=== PATIENT | male | born 1995 | race Caucasian/White ===

== ENCOUNTER 2017-04-06 11:06 | Day surgery (SDC) | payer BC, OTHER ==
[2017-04-06] VITALS (12 sets, daily range): BP systolic 102–117; BP diastolic 57–94
[~2017-04-06] VITALS: Ht 190.5 cm; Wt 72.6 kg
--- OUTSIDE RECORDS SUMMARY | 2017-04-06 11:08 | XMS REPORT | Encounter Summary ---
Author Author [facility] Organization [facility] Address Unknown Phone Unavailable Care Team Providers Care Fermentation Manager Name Role Phone PCP Unavailable Reason for Visit * Reason Comments HRM - Abnormal Results torsades 03/23/17 on ILR (Remote Device - Abnormal Rhythms) Encounter Details Date Type Department Care Team Description 04/02/2017 Telephone [facility] Cardiology Esha Aponte RN HRM - Abnormal Results [address] (Remote Device - Abnormal Justyn G600 Rhythms) (torsades 03/23/17 [place] [address] on ILR) [phone] Social History Tobacco Use Types Packs/Day Years Used Date Never Smoker Smokeless Tobacco: Never Used Alcohol Use Drinks/Week oz/Week Comments Yes 4 Cans of 2.4 beer Sex Assigned at Date Recorded Not on file as of this encounter Miscellaneous Notes * Addendum Note - Eneida Kim RN - 04/02/2017 9:58 AM [employer]IGH [employer]CHOOL [employer] MEDIA SPECIALIST Addended by: ENEIDA KIM on: 04/02/2017 09:58 AM Modules accepted: Orders * Telephone Encounter - nEeida Kim RN - 04/02/2017 9:57 AM [employer]CHO[employer] MEDIA SPECIALIST Followed up with WOODWORKING MACHINE OFFBEARER. Recommended for him to be evaluated today by Dr. Perez. Possible admission for tele monitoring until ICD can be placed. Agree with propranolol 10mg TID. Notified Dr. Perez's office of request. Agreeable to see at 1040 today. Notified Tena, she verbalized understanding and was agreeable with the plan. * Telephone Encounter - Eneida Kim, NENA - 04/02/2017 9:19 AM [employer]IGH [employer]CHO[employer] MEDIA SPECIALIST Followed up with patient's mom, Tena. She reports patient is currently sleeping due to the flu. Chester (p) [phone] She states he thinks he had some lightheadedness the evening of 03/23/17. He may have been drinking the evening before. At most recent OV with WOODWORKING MACHINE OFFBEARER: I have never been able to document a ventricular arrhythmia on Chester. I think it is okay for him to be off of pindolol for now. If we do start seeing any arrhythmias, then I would favor reinitiating propranolol instead as it does not have such as stimulating side effect. He will intermittently reconnect with his device and/or call us if he has any symptoms. Reviewed with RAD. Recommend 20mg TID, hydrate and avoid fevers. Followed up with patient's mom. Notified of recommendations. She is requesting lower dose of propranolol to start, until WOODWORKING MACHINE OFFBEARER reviews. 10mg TID sent in. Stressed importance of hydration. She states they have been trying to keep him hydrated. And to report to ED with any lightheadedness / syncope. She was agreeable with the plan. * Telephone Encounter - Esha Aponte RN - 04/02/2017 8:45 AM [employer]CHO[employer] MEDIA SPECIALIST Received urgent report of torsades event on LINQ from [facility] Fixed - Parking Tickets. Pt is gene positive for Long QT, no previously documented events hence LINQPlaced call to pt to discuss, number of chart is pt's mother Tena. Informed Tena of ventricular event noted on LINQ 03/23/17 at 2158. Tena states pt is doing fine , has not reported any symptoms to her. She states he is sick right now with the flu. She will review with pt if he had any symptoms at time of event. Will review with WOODWORKING MACHINE OFFBEARER and return call to pt's mom with plan. Tena states understanding and is agreeable to plan. No further questions or concerns at this time. WOODWORKING MACHINE OFFBEARER in case in EP lab, will review with RAD in clinic and f/u with pt's mom. in this encounter Plan of Treatment Not on fileas of this encounter Visit Diagnoses Not on filein this encounter
--- OUTSIDE RECORDS SUMMARY | 2017-04-06 11:08 | XMS REPORT | Clinical Summary ---
Author Author [facility] Organization [facility] Address Unknown Phone Unavailable Care Team Providers Care Form Setter Steel Forms Name Role Phone PCP Unavailable Source Comments Some departments are not documenting in the electronic medical record. If you do not see the information that you expected, contact Release of Information in the Health Information Management department at [phone] for further assistance in locating additional records.[facility] Allergies Active Allergy Reactions Severity Noted Date Comments Ceftazidime HIVES High 10/22/2015 Seasonal Allergies COUGH Low 10/22/2015 Current Medications Prescription Sig. Disp. Refills Start End Date Status Date LORATADINE (CLARITIN PO) Take by mouth daily. Active MONTELUKAST SODIUM Take by mouth daily. Active (SINGULAIR PO) pindolol (VISKIN) 5 mg Take 0.5 Tabs by mouth 60 Tab 6 11/06/19 Active tablet twice daily. 16 propranolol (INDERAL) 10 Take 1 tablet by mouth 90 tablet 3 04/02/19 Active mg tablet three times daily. 18 Active Problems Problem Noted Date Lightheadedness 10/25/2015 Last Assessment & Plan: He has done overall well since I last saw him. Chester denies any syncope. He does have some occasional lightheaded spells is really nonspecific about when they occur. I do not get the sense that all of them are associated with position changes. We talked about implantable loop recorder as his testing thus far has been negative. I reviewed the procedure including its risks and benefits. He has decided to proceed with ILR implantation today. 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 His pindolol is causing some anxiety and I suspect this is due to the sympathomimetic effect of the drug. Since coming off of it, Chester has noticed that his jumpiness and depression are gone. We talked about this at length. I have never been able to document [...] call us if he has any symptoms. He is happy with this plan. Bradycardia 10/25/2015 Encounters Date Type Specialty Care Team Description 04/02/2017 Telephone Cardiology Esha Aponte RN HRM - Abnormal Results (Remote Device - Abnormal Rhythms) (torsades 03/23/17 on ILR) 03/17/2017 [facility] Cardiology Suyapa Barrow MD Encounter 03/09/2017 Office Visit Cardiology Suyapa Barrow MD Device Check ( 6 month follow up / patient wants to talk to you about his meds); Bradycardia 03/09/2017 [facility] Cardiology Suyapa Barrow MD Encounter 02/10/2017 [facility] Cardiology Suyapa Barrow MD Encounter 01/07/2017 [facility] Cardiology Suyapa Barrow MD Encounter from Last 3 Months Family History Medical History Relation Name Comments Cancer Maternal Grandfather Heart Attack Maternal Grandfather Relation Name Status Comments Maternal Grandfather Maternal Grandmother Mother Alive Social History Tobacco Use Types Packs/Day Years Used Date Never Smoker Smokeless Tobacco: Never Used Alcohol Use Drinks/Week oz/Week Comments Yes 4 Cans of 2.4 beer Sex Assigned at Date Recorded Not on file Last Filed Vital Signs Vital Sign Reading Time Taken Blood Pressure 124/84 03/09/2017 2:58 PM MANAGER PLANT Pulse 49 03/09/2017 2:58 PM MANAGER PLANT Temperature - - Respiratory Rate - - Oxygen Saturation - - Inhaled Oxygen - - Concentration Weight 74.8 kg (165 lb) 03/09/2017 2:58 PM MANAGER PLANT Height 190.5 cm (6' 3") 03/09/2017 2:58 PM MANAGER PLANT Body Mass Index 20.62 03/09/2017 2:58 PM MANAGER PLANT Plan of Treatment Health Maintenance Due Date Last Done Comments PHYSICAL (COMPREHENSIVE) 2000 EXAM PERTUSSIS VACCINE 2004 TETANUS VACCINE 2010 INFLUENZA VACCINE 10/21/2016 Results * DEVICE EVALUATION - REMOTE ILR (03/17/2017 3:13 PM) Only the most recent of 3 results within the time period is included. Component Value Ref Range Device Implanted By Dr.Rhea Barrow Generator Model # [id number] Generator Serial # [id number] Generator Implnat Date 07/23/16 Remote Monitor Serial# [id number] LOBO/EOL Indicator per transmitter Generator Consumer Experience Consultant Medtronic Wireless Generator Yes Device Type ILR Device [place] [employer] Express Transmitter Compatible Known Diagnosed AFib No On Anticoagulation No EP Device Followed by Dr.Rhea Barrow Name ILR Symptom Duration 4 7.5 mins each ILR Tachy Rate 207 ILR Tachy Duration 16 ILR Pause Duration 3 ILR Kris Rate 30 ILR Kris Duration 4 ILR AT Events Since Last n/a Interrogation ILR AT Lifetime Events as n/a of EP Device Followed By MAC ILR AF Rate AF only ILR AF Duration only longest episode Generator Location Left ILR Current Monitoring 03/17/17-04/16/17 Period ILR Date of Last Daily 04/02/17 Connection ILR Battery Status OK ILR Symptom Events Since 0 Last Interrogation ILR Symptom Lifetime 0 Events as of ILR Tachy Events Since 0 Last Interrogation ILR Tachy Lifetime Events 1 as of ILR Pause Events Since 0 Last Interrogation ILR Pause Lifetime Events 0 as of ILR Kris Events Since 0 Last Interrogation ILR Kris Lifetime Events 0 as of ILR AF Events Since Last 0 Interrogation ILR AF Lifetime Events as 1 of ILR Percent Time in AT/AF 0 Events Since Last Interrogation ILR Percent Time in AT/AF 0 Lifetime of Events as of ILR Lifetime Events as of 04/02/17 Datetion Specimen Performing Laboratory OTHER OUTSIDE LAB Narrative [04/02/2017 8:45:32 AM - [facility]] Esha Aponte,EP nurse, notified of abnormal transmission for Torsades de pointes. Presenting EGM 04/02/17 @ 00:04 shows SB rates in the 40's. Event report received and reviewed Tachy Event. Tachy #2 03/23/17 @ 21:58- Rhythm strip shows SA rates between 70's-80's-Torsades de pointes Please see scanned data sheets for further review, will continue to monitor. Results routed to Dr. Barrow for signature and review. [03/17/2017 3:13:43 PM - [facility]] Presenting EGM: 03/14/17 @00:04: SR rates in the 80's Summary Report received and reviewed. No new events to review. Will continue to monitor. Routed to for review and cosign. * DEVICE EVALUATION - ILR (03/10/2017 8:56 AM) Component Value Ref Range Device Implanted By Dr.Rhea Barrow Generator Model # LNQ11 Generator Serial # [id number] Generator Implnat Date 07/23/16 Remote Monitor Serial# [id number] LOBO/EOL Indicator per transmitter Generator Consumer Experience Consultant Medtronic Wireless Generator Yes Device Type ILR Device [place] [employer] Express Transmitter Compatible Known Diagnosed AFib No On Anticoagulation No EP Device Followed by Dr.Rhea Barrow Name ILR Symptom Duration 4 7.5 mins each ILR Tachy Rate 207 ILR Tachy Duration 16 ILR Pause Duration 3 ILR Kris Rate 30 ILR Kris Duration 4 ILR AT Events Since Last n/a Interrogation ILR AT Lifetime Events as n/a of EP Device Followed By MAC ILR AF Rate AF only ILR AF Duration only longest episode Specimen Performing Laboratory OTHER OUTSIDE LAB Narrative [facility] 03/09/17 ILR check by MDT rep. One AMS event for < 0.1 %. No other information provided. See attached for more information. Remote in place. Same day OV with CARDIAC TECHNOLOGIST. Report to her. from Last 3 Months
--- OUTSIDE RECORDS SUMMARY | 2017-04-06 11:08 | XMS REPORT | Continuity of Care Document ---
Author Author [facility] Organization [facility] Address Unknown Phone Unavailable Care Team Providers Care Call Worker Name Role Phone [employer] Unavailable Unavailable Problems Medications Allergies, Adverse Reactions, Alerts Immunizations Results Vital Signs Encounters Location Location Details Encounter Type Encounter Number Reason For Visit Attending Provider ADM Date DC Date Status Source OUTPATIENT [id number] CASSANDRA PALMER 02/13/20162015 Active [facility] OUTPATIENT [id number] CASSANDRA PALMER 11/03/20162016 Active [facility] OUTPATIENT [id number] CASSANDRA PALMER 12/03/20162016 Active [facility] OUTPATIENT [id number] CASSANDRA PALMER 01/07/20172016 Active [facility] OUTPATIENT [id number] CASSANDRA PALMER 02/10/20172016 Active [facility] OUTPATIENT [id number] CASSANDRA PALMER 03/09/20172016 Active [facility] OUTPATIENT [id number] CASSANDRA PALMER 03/17/20172016 Active [facility] O Active [facility] Procedures Plan of Care Social History Assessment and Plan Family History Advance Directives Functional Status
--- OUTSIDE RECORDS SUMMARY | 2017-04-06 11:09 | XMS REPORT | Encounter Summary ---
Author Author [facility] Organization [facility] Address Unknown Phone Unavailable Care Team Providers Care Delivery Table Operator Name Role Phone PCP Unavailable Reason for Visit * Reason Comments Device Check 6 month follow up / patient wants to talk to you about his meds Bradycardia Encounter Details Date Type Department Care Team Description 03/09/2017 Office Visit [facility] Cardiology Suyapa Barrow MD Device Check (6 month [address] follow up / patient wants JOSELINE BEAN [phone] [place] [address] to talk to you about his [phone] [place] [address] meds); Bradycardia [id number] Social History Tobacco Use Types Packs/Day Years Used Date Never Smoker Smokeless Tobacco: Never Used Alcohol Use Drinks/Week oz/Week Comments Yes 4 Cans of 2.4 beer Sex Assigned at Date Recorded Not on file as of this encounter Last Filed Vital Signs Vital Sign Reading Time Taken Blood Pressure 124/84 03/09/2017 2:58 PM EMERGENCY ROOM DOCTOR Pulse 49 03/09/2017 2:58 PM EMERGENCY ROOM DOCTOR Temperature - - Respiratory Rate - - Oxygen Saturation - - Inhaled Oxygen - - Concentration Weight 74.8 kg (165 lb) 03/09/2017 2:58 PM EMERGENCY ROOM DOCTOR Height 190.5 cm (6' 3") 03/09/2017 2:58 PM EMERGENCY ROOM DOCTOR Body Mass Index 20.62 03/09/2017 2:58 PM EMERGENCY ROOM DOCTOR in this encounter Instructions * Patient Instructions - Suyapa Barrow MD - 03/09/2017 3:15 PM EMERGENCY ROOM DOCTOR Continue the same therapy for now. Call if you experience any changes or symptoms. Follow up in the office with Dr. Barrow in 12 months. in this encounter Progress Notes * Suyapa Barrow MD - 03/09/2017 3:15 PM EMERGENCY ROOM DOCTOR Formatting of this note may be different from the original. Date of Service: 03/09/2017 Chester Gomez is a 21 y.o. male. HPI Chester Gomez presents my office today in electrophysiology follow-up for history of genetically proven long QT and dizziness. As you know, he is a pleasant 21-year-old male with a past medical history of genetically proven long QT2 as well as sinus node dysfunction who was last seen in the office by me in July. At that time, he was doing well with any significant complaints. We made plans to see each other back in follow-up in 6 months. Chester is in my office today telling me that he has continued to do well. He is complaining of some sensations of anxiety and jumpiness on the pindolol. He also thinks that it is making him a little bit depressed. He came off the medicine a couple weeks ago and immediately noticed a difference. He wants to discuss whether he needs to be on the medication. Interrogation of the patient's implantable loop recorder shows one episode that was labeled atrial fibrillation on December 14 at 11 AM. Review of the electrograms associated with the event looks like sinus rhythm with frequent atrial ectopy rather than true atrial fibrillation. No ventricular arrhythmias were seen. Vitals: 03/09/17 1458 BP: 124/84 Pulse: 49 Weight: 74.8 kg (165 lb) Height: 1.905 m (6' 3") Body mass index is 20.62 kg/(m^2). 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 HENT: Negative. Eyes: Negative. Cardiovascular: Negative. Respiratory: Negative. Endocrine: Negative. Hematologic/Lymphatic: Negative. Skin: Negative. Musculoskeletal: Negative. Gastrointestinal: Negative. Genitourinary: Negative. Neurological: Negative. Psychiatric/Behavioral: Negative. Allergic/Immunologic: Negative. All other systems reviewed and are negative. Physical Exam GEN: well developed, well nourished, in no acute distress HEENT: unremarkable, no JVD CHEST: clear to auscultation bilaterally CV: Reg rhythm, nml rate; nml S1 & S2, no S3 or S4; no rub; no murmurs ABD: soft, nontender, non-distended, positive bowel sounds EXT: no clubbing, cyanosis, or edema, 2+ distal pulses NEURO: alert and oriented x3, no focal deficits Cardiovascular Studies 12 lead EKG: Sinus rhythm, ventricular rate 49 bpm, QT 490 msec Problems Addressed Today Encounter Diagnoses Name Primary? 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 He is happy with this plan. I have asked the patient to see me back in follow up in one year. Current Medications (including today's revisions) LORATADINE (CLARITIN PO) Take by mouth daily. MONTELUKAST SODIUM (SINGULAIR PO) Take by mouth daily. pindolol (VISKIN) 5 mg tablet Take 0.5 Tabs by mouth twice daily. 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 He is happy with this plan. in this encounter Plan of Treatment Name Priority Associated Diagnoses Order Schedule ECG 12-LEAD Routine Long QT syndrome Ordered: 03/09/2017 associated with mutation in KCNH2 gene Lightheadedness Bradycardia as of this encounter Results * DEVICE EVALUATION - ILR (03/10/2017 8:56 AM) Component Value Ref Range Device Implanted By Dr.Rhea Barrow Generator Model # LNQ11 Generator Serial # [id number] Generator Implnat Date 07/23/16 Remote Monitor Serial# [id number] LOBO/EOL Indicator per transmitter Generator Diamond Saw Operator Medtronic Wireless Generator Yes Device Type ILR Device [place] Carelink Express Transmitter Compatible Known Diagnosed AFib [...] episode Specimen Performing Laboratory OTHER OUTSIDE LAB [facility] 03/09/17 ILR check by MDT rep. One AMS event for < 0.1 %. No other information provided. See attached for more information. Remote in place. Same day OV with MILLER HELPER. Report to her. 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
--- OUTSIDE RECORDS SUMMARY | 2017-04-06 11:09 | XMS REPORT | Continuity of Care Document ---
Author Author [facility] Organization [facility] Address Unknown Phone Unavailable Allergies Active Description Code Type Severity Reaction Onset Reported/Identified Relationship to Patient Clinical Status Yes ceftazidime [id number] Drug Allergy Moderate HIVES 03/12/2015 Medications There is no data. Problems Date Dx Coded Attending Type Code Diagnosis Diagnosed By 01/23/2015 KARLA CAVAZOS, ALFREDITO Moreno Ot M54.16 01/24/2015 KARLA CAVAZOS, ALFREDITO Moreno Ot M54.16 02/01/2015 KARLA CAVAZOS, ALFREDITO Moreno Ot M54.16 02/28/2015 KARLA CAVAZOS, ALFREDITO Moreno Ot M54.16 03/05/2015 KARLA CAVAZOS, ALFREDITO Moreno Ot M54.16 03/12/2015 HUBERT WU MD, Ot M51.16 INTERVERTEBRAL DISC DISORDERS W RADICULO 04/13/2015 HUBERT WU MD, Ot M51.16 INTERVERTEBRAL DISC DISORDERS W RADICULO 05/07/2015 KARLA CAVAZOS, ALFREDITO Moreno Ot M54.16 06/19/2015 KARLA CAVAZOS, ALFREDITO Moreno Ot M54.16 06/27/2015 KARLA CAVAZOS, ALFREDITO Moreno Ot M54.16 07/25/2015 KARLA CAVAZOS, ALFREDITO Moreno Ot M54.16 RADICULOPATHY, LUMBAR REGION 12/18/2016 KARLA CAVAZOS, ALFREDITO Moreno Ot M54.16 RADICULOPATHY, LUMBAR REGION 04/03/2017 KARLA CAVAZOS, ALFREDITO Moreno Ot M54.16 RADICULOPATHY, LUMBAR REGION Procedures There is no data. Results There is no data. Encounters ACCT No. Visit Date/Time Discharge Status Pt. Type Provider Facility Loc./Unit Complaint [id number] 04/13/2015 10:22:00 04/13/2015 11:48:00 DIS Outpatient HUBERT WU MD [facility] CARD DISC DISORDER W/ RADICULOPATHY LUMBAR [id number] 03/12/2015 12:05:00 03/12/2015 13:51:00 DIS Outpatient JAZMIN CAVAZOS, HUBERT Sanchez [facility] CARD DDD WITH RADICULOPATHY [id number] 01/18/2015 15:42:00 01/18/2015 23:59:59 CLS Outpatient KARLA CAVAZOS, ALFREDITO Moreno [facility] RAD LUMBAR RADICULOPATHY [id number] 04/06/2017 13:30:00 PEN Preadmit KIERAN CAVAZOS, Lesia KAPADIA [facility] Z82.49,I45.81
--- OUTSIDE RECORDS SUMMARY | 2017-04-06 11:09 | XMS REPORT | Encounter Summary ---
Author Author [facility] Organization [facility] Address Unknown Phone Unavailable Care Team Providers Care Data Management Associate Name Role Phone PCP Unavailable Encounter Details Date Type Department Care Team Description 01/07/2017 [facility] Cardiology Suyapa Barrow MD Encounter Remote Device Check [address] [facility] [phone] [address] [place] [address] [phone] Social History Tobacco Use Types Packs/Day Years Used Date Never Smoker Smokeless Tobacco: Never Used Alcohol Use Drinks/Week oz/Week Comments Yes 4 Cans of 2.4 beer Sex Assigned at Date Recorded Not on file as of this encounter Medications at Time of Discharge Medication Sig. Disp. Refills Start Date End Date LORATADINE (CLARITIN PO) Take by mouth daily. MONTELUKAST SODIUM Take by mouth daily. (SINGULAIR PO) pindolol (VISKIN) 5 mg Take 0.5 Tabs by mouth 60 Tab 6 11/06/2015 tablet twice daily. as of this encounter Plan of Treatment Not on fileas of this encounter Results * DEVICE EVALUATION - REMOTE ILR (01/10/2017 9:19 AM) Component Value Ref Range Device Implanted By Dr.Rhea Barrow Generator Model # LNQ11 Generator Serial # [id number] Generator Implnat Date 07/23/16 Remote Monitor Serial# [id number] LOBO/EOL Indicator per transmitter Generator Teletypesetter Monitor Medtronic Wireless Generator Yes Device Type ILR Device [place] Carelink Express Transmitter Compatible Known Diagnosed AFib No On Anticoagulation No EP Device Followed by Dr.Rhea Barrow Name ILR Symptom Duration 4 7.5 mins each ILR Tachy Rate 207 ILR Tachy Duration 16 ILR Pause Duration 3 ILR Kris Rate 30 ILR Kris Duration 4 ILR AT Events Since Last n/a Interrogation ILR AT Lifetime Events as n/a of EP Device Followed By SANTOS ILR AF Rate AF only ILR AF Duration only longest episode Generator Location Left ILR Current Monitoring 01/07/2017 to 02/06/2017 Period ILR Date of Last Daily 02/04/17 Connection ILR Battery Status OK ILR Symptom Events Since 0 Last Interrogation ILR Symptom Lifetime 0 Events as of ILR Tachy Events Since 0 Last Interrogation ILR Tachy Lifetime Events 0 as of ILR Pause Events Since 0 Last Interrogation ILR Pause Lifetime Events 0 as of ILR Kris Events Since 0 Last Interrogation ILR Kris Lifetime Events 0 as of ILR AF Events Since Last 0 Interrogation ILR AF Lifetime Events as 1 of ILR Percent Time in AT/AF 0.0% Events Since Last Interrogation ILR Percent Time in AT/AF 0.0% Lifetime of Events as of ILR Presenting ECG Strip 01/05/2017 @ 00:04:50 shows SB in the 40's-50's ILR Lifetime Events as of 02/04/17 Datetion Specimen Performing Laboratory OTHER OUTSIDE LAB Narrative [02/04/2017 3:29:12 PM - AIMEE SALGADO] Presenting EGM: 02/04/17 @ 0246 SB 58 bpm Summary report received and reviewed. No new events to report, Will continue to monitor,Routed to Dr. Sosa for review/cosign. Dr. Pushpa JACOBSEN [01/10/2017 9:21:23 AM - DAVID ALVES] Presenting rhythm: 01/05/2017 @ 00:04:50 shows SB in the 40's-50's Reviewed Summary Report. No new events to report. Will continue to monitor pt. I will route to Dr. Sosa in the EP lab at today for review and co-sign. 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
--- OUTSIDE RECORDS SUMMARY | 2017-04-06 11:09 | XMS REPORT | Encounter Summary ---
Author Author [facility] Organization [facility] Address Unknown Phone Unavailable Care Team Providers Care Trailer Mechanic Name Role Phone PCP Unavailable Encounter Details Date Type Department Care Team Description 02/10/2017 [facility] Cardiology Suyapa Barrow MD Encounter Remote Device Check [address] [facility] [phone] [address] [place] [address] [phone] Social History Tobacco Use Types Packs/Day Years [...] Results * DEVICE EVALUATION - REMOTE ILR (02/11/2017 6:36 AM) Component Value Ref Range Device Implanted By Dr.Rhea Barrow Generator Model # LNQ11 Generator Serial # [id number] Generator Implnat Date 07/23/16 Remote Monitor Serial# [id number] LOBO/EOL Indicator per transmitter Generator Tractor Distributor Medtronic Wireless Generator Yes Device Type ILR Device [place] Carelink Express Transmitter Compatible Known Diagnosed AFib [...] episode Generator Location Left ILR Current Monitoring 02/10/2017 to 03/12/2017 Period ILR Date of Last Daily 02/11/2017 Connection ILR Battery Status OK ILR Symptom [...] Events as of ILR Presenting ECG Strip 02/11/2017 @ 00:04:50 shows SR in the 60's ILR Lifetime Events as of 02/11/2017 Datetion Specimen Performing Laboratory OTHER OUTSIDE LAB Narrative [02/11/2017 6:38:26 AM - DAVID ALVES] Presenting rhythm: 02/11/2017 @ 00:04:50 shows SR in the 60's Reviewed Summary Report. No new events to report. Will continue to monitor pt. I will route to Dr. Barrow for review and co-sign. 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
--- OUTSIDE RECORDS SUMMARY | 2017-04-06 11:09 | XMS REPORT | Encounter Summary ---
Author Author [facility] Organization [facility] Address Unknown Phone Unavailable Care Team Providers Care Automotive Assembler Name Role Phone PCP Unavailable Encounter Details Date Type Department Care Team Description 03/09/2017 [facility] Cardiology Suyapa Barrow MD Encounter [address] [place], [place] [phone] Social History Tobacco Use Types Packs/Day Years [...] Generator Model # LNQ11 Generator Serial # [id number] Generator Implnat Date 07/23/16 Remote Monitor Serial# [id number] LOBO/EOL Indicator per transmitter Generator Shipping Receiving Clerk Medtronic Wireless Generator Yes Device Type ILR Device [place] Carelink Express Transmitter Compatible Known Diagnosed AFib [...] episode Specimen Performing Laboratory OTHER OUTSIDE LAB [facility] 03/09/17 ILR check by MDT rep. One AMS event for < 0.1 %. No other information provided. See attached for more information. Remote in place. Same day OV with PRINTING PRESS OPERATOR APPRENTICE. Report to her. 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
--- OUTSIDE RECORDS SUMMARY | 2017-04-06 11:09 | XMS REPORT | Encounter Summary ---
Author Author [facility] Organization [facility] Address Unknown Phone Unavailable Care Team Providers Care Senior Gis Analyst Name Role Phone PCP Unavailable Encounter Details Date Type Department Care Team Description 03/17/2017 [facility] Cardiology Suyapa Barrow MD Encounter Remote Device Check [address] [facility] [phone] [address] [place] [address] [phone] Social History Tobacco Use Types Packs/Day Years [...] EVALUATION - REMOTE ILR (03/17/2017 3:13 PM) Component Value Ref Range Device Implanted By Dr.Rhea Barrow Generator Model # LNQ11 Generator Serial # [id number] Generator Implnat Date 07/23/16 Remote Monitor Serial# [id number] LOBO/EOL Indicator per transmitter Generator Dry End Operator Medtronic Wireless Generator Yes Device Type ILR Device [place] Carelink Express Transmitter Compatible Known Diagnosed AFib [...] monitor. Routed to for review and cosign. 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
[2017-04-06] MEDS ORDERED: HEParin (CATH LAB) 1,000 ML IV ONE (11:12)
[2017-04-06] MEDS ORDERED: LIDOCAINE 1% INJ 50 ML (XYLOCAINE) VIAL ONE ×2 (11:12→15:19)
[2017-04-06] MEDS ORDERED: NS IV 1000 ML 1,000 ML ONE (11:12)
[2017-04-06 11:43] LABS: HEMOGLOBIN 17.2 G/DL (13.3-17.7); MEAN PLATELET VOLUME 11.3 FL (7.4-10.4); RED BLOOD COUNT 5.41 10^6/uL (4.35-5.85); RED CELL DISTRIBUTION WIDTH 11.9 % (10.0-14.5); WHITE BLOOD COUNT 5.7 10^3/uL (4.3-11.0)
[2017-04-06] MEDS ORDERED: PROP10TA8 PO (11:51)
[2017-04-06 11:52] LABS: INR 1.1 (0.8-1.4); PROTHROMBIN TIME PATIENT 14.1 SEC (12.2-14.7)
[2017-04-06 12:05] LABS: ALANINE AMINOTRANSFERASE 29 U/L (0-55); ALBUMIN 4.9 GM/DL (3.2-4.5); ALKALINE PHOSPHATASE 48 U/L (40-136); BUN/CREATININE RATIO 12; CALCIUM 9.5 MG/DL (8.5-10.1); CARBON DIOXIDE 26 MMOL/L (21-32); CHLORIDE 103 MMOL/L (98-107); GFR ESTIMATED > 60; GLUCOSE 81 MG/DL (70-105); POTASSIUM 3.7 MMOL/L (3.6-5.0); SODIUM 141 MMOL/L (135-145); TOTAL PROTEIN 7.9 GM/DL (6.4-8.2)
[2017-04-06] MEDS ORDERED: BACITRACIN INJECTION 50,000 UNIT, SODIUM CHLORIDE 0.9% IRRIGATIO 500 ML IR ONE ×2 (12:30)
[2017-04-06] MEDS ORDERED: MIDAZOLAM 5 MG/5 ML (VERSED) VIAL ONE ×2 (12:35→13:33)
[2017-04-06] MEDS ORDERED: fentaNYL INJECTION 100 MCG/2 ML AMP ONE ×2 (12:35→13:34)
[2017-04-06] MEDS ORDERED: NS (IVPB) 250 ML ONE (12:37)
[2017-04-06] MEDS ORDERED: VANCOMYCIN 1000 MG/VIAL ONE (12:37)
[2017-04-06] MEDS ORDERED: proPOfol 200 MG/20 ML (DIPRIVAN) VIAL IV ONE (14:38)
--- NOTE | 2017-04-06 14:55 | Progress Note-Standard ---
Standard Progress Note Progress Notes/Assess & Plan Date Seen by Provider: Apr 06, 2017 Time Seen by Provider: 14:45 Progress/Assessment & Plan Anesthesia Note ([id number]) Called to slab miller operator for sedation (MAC) for defib function testing. Pt already received Versed 9 mg IV and Fentanyl 175 mcg IV prior to my arrival. VSS and pt not responding to verbal stimuli. Propofol 40 mg IV given for additional sedation prior to DFT. Pt tolerated the testing well. Will be available if needed. LESLYE MAYS DO Apr 06, 2017 14:55
[2017-04-06] MEDS ORDERED: NEO/POLY/BAC (NEOSPORIN) OINT 15 GM TUBE ONE (15:02)
--- NOTE | 2017-04-06 15:45 | Cardiac Procedure Note-CS/ASA ---
Pre-Procedure Note Pre-Op Procedure Note H&P Reviewed The H&P was reviewed, patient examined and no changes noted. Date H&P Reviewed: Apr 06, 2017 Time H&P Reviewed: 12:30 Conscious Sedation Pre-Proced Time Reviewed: 12:30 ASA Class: 3 Airway Mallampati Classification: (eek appropriate class) I. II. III, IV Lungs Heart ASA score ASA 1: a normal healthy patient ASA 2: a patient with a mild systemic disease (mid diabetes, controlled hypertension, obesity ASA 3: a patient with a severe systemic disease that limits activity (angina , COPD, prior Myocardial infarction) ASA 4: a patient with an incapacitating disease that is a constant threat to life (CHF, renal failure) ASA 5: a moribund patient not expected to survive 24 hrs. (ruptured aneurysm) ASA 6: a declared brain patient whose organs are being harvested. For emergent operations, add the letter E after the classification Grade 1 Sedation Plan: Analgesia, Amnesia, Plan communicated to team members, Discussed options with patient/fam, Discussed risks with patient/fam Note The patient is an appropriate candidate to undergo the planned procedure, sedation, and anesthesia. The patient immediately re-assessed prior to indication. Lesia ALCARAZ MD Apr 06, 2017 3:45 pm
--- NOTE | 2017-04-06 15:46 | Cardiology Post Procedure Note ---
Post-Procedure Note Physician (s)/Sand Carrier (s) Physician Lesia ALCARAZ MD Pre-Procedure Diagnosis Pre-Procedure Diagnosis: long QT syndrome, polymorphic VT Post-Procedure Note Procedure Start Date: Apr 06, 2017 Procedure Start Time: 13:00 Name of Procedure: 1. Single chamber ICD implantation. 2. Implantable loop recorder explantation. 3. Venogram 4. DFT testing Findings/Procedure Note Successful single-chamber Biotronik ICD implantation. Implantable loop recorder explantation. Anesthesia Type: Conscious Sedation Estimated blood loss (mL): 10 Contrast Amount: 5 Post-Procedure Diagnosis Post-operative diagnosis: Successful single-chamber ICD implantation. Implantable loop recorder explantation. Lesia ALCARAZ MD Apr 06, 2017 3:46 pm
[2017-04-06] MEDS ORDERED: NS IV 1000 ML 1,000 ML IV SCH (15:47)
[2017-04-06] MEDS ORDERED: PATIENT MAY USE OWN MEDS, ALL PO SCH (16:00)
--- NOTE | 2017-04-06 16:11 | Diagnostic Imaging Report ---
EXAM: CHEST 1 VIEW, AP/PA ONLY. INDICATION: ICD implantation. COMPARISON: None. FINDINGS: AICD. Normal heart size and pulmonary vascularity. No dense consolidation, pleural effusion, or pneumothorax. No acute osseous findings. IMPRESSION: AICD. No pneumothorax. Dictated by: Dictated on workstation # [id number]
[2017-04-06] MEDS: VANCOMYCIN INJECTION 1,000 MG in NS (IVPB) 250 ML IV SCH (20:57)
[2017-04-07] VITALS: BP 124/75
[2017-04-07] MEDS: ACETAMINOPHEN 325 MG TABLET/CAPLET (TYLENOL) PO PRN ×2 (01:59→08:45)
[2017-04-07 04:00] VITALS: BP 125/68
--- NOTE | 2017-04-07 04:04 | OPERATIVE REPORT ---
DATE OF SERVICE: 04/06/2017 SINGLE CHAMBER ICD IMPLANTATION PRIMARY PHYSICIAN: Lubna Jones MD REFERRING AUTOMOTIVE SERVICE TECHNICIAN: Shima Perez MD SPIRAL GEAR GENERATOR: Sonali Mayo MD INDICATION: long QT syndrome, polymorphic VT, PREOPERATIVE DIAGNOSES: 1. Familial long-QT2 syndrome. 2. Polymorphic ventricular tachycardia on implantable loop recorder interrogation, symptomatic. POSTOPERATIVE DIAGNOSES: 1. Successful single chamber implantable cardioverter-defibrillator implantation. 2. Implantable loop recorder explantation. HISTORY: The patient is a 21-year-old gentleman who has family history of long QT syndrome with ICD in his brother. He also has a long QT syndrome type 2. His QTC interval is 490 milliseconds. He is also genetically tested and positive. Previously, an implantable loop recorder was placed. Recently, the patient had dizziness and device interrogation showed polymorphic VT (torsades de pointes) for 18 seconds. The patient did not have arely syncope. ICD implantation is recommended. PROCEDURE PERFORMED: 1. Single-chamber ICD implantation. 2. Implantable loop recorder explantation. 3. Venogram. 4. DFT testing. COMPLICATIONS: None. ESTIMATED BLOOD LOSS: 20 mL. SPECIMENS: None. ANESTHESIA: Conscious sedation. ORAL ANTICOAGULATION: None. FLUOROSCOPY TIME: 8.45 minutes FLUOROSCOPY DOSE: 23 mgy. CONTRAST DOSE: 5 mL. PROCEDURE DETAILS: After all the questions were answered, an informed consent was taken. All the risks and complication were explained in detail. The patient was brought to the EP lab. The patient's right and left chest was prepped and draped in the usual sterile fashion. A 2-inch horizontal incision was made 1 cm below the clavicle and dissection carried down to the pectoralis fascia. IV antibiotics were administered prior to first incision. Under fluoroscopic guidance, access was gained in the axillary vein and a regular J-wire was placed. This was done after a venogram was performed. Since earlier, we were unable to gain access into the axillary vein. We then introduced a sheath into the axillary vein. A Biotronik ICD lead was inserted. This is a single-coiled ICD lead. The RV lead was inserted across the tricuspid valve to an apical septal portion of the RV. The lead position was checked in SAMMARINESE and GOTTLIEB view. The screw was deployed and lead connected to the rpg programmer. Good sensing and pacing thresholds were obtained. Diaphragmatic pacing was ruled out. The lead was secured with 2-0 Vicryl nonabsorbable sutures. The lead was secured to the underlying muscle and fascia. We then took an ICD generator and the lead was connected to the device in a hermetic fashion. The device and it was placed in the pocket. Aggressive irrigation with normal saline solution was done. Interrogation of the device revealed good integrity of the leads and connection. The wound was closed using 2 layers. The first layer was an interrupted 2-0 Vicryl. The second layer was an uninterrupted 4-0 Vicryl suture. Half inch Steri-Strips and a small dressing was then applied to the wound. DFT testing was done with anesthesia support. The induction mechanism was a T-shock. The first T-shock was at 290 milliseconds at one joule. Nonsustained VF was noted. We could not give therapy since it was nonsustained. Then, we did two shocks at 300 milliseconds for one joule. Nonsustained VF was seen however, no therapy was given. The fourth T-shock was done at 310 milliseconds at one joule and again it was nonsustained VF. Therefore, we did not shock the patient. The left upper chest was also prepped. Lidocaine was given at the site of previous implantable loop recorder placement. Small incision was done and the loop recorder was explanted. The skin was closed with Dermabond and Steri-Strips. DEVICE INFORMATION: The device is an Iperia 7 VR-T DX Biotronik, reference #[id number], serial #[id number], PID 97. The RV lead is a Plexa proMRI DF-1 S DX 65/17 Biotronik lead, reference #[id number], serial #[id number]. INTRAOPERATIVE DEVICE TESTING: RA P-wave sensing was 1.4 millivolts. RV sensing was 6.1 millivolts, impedance 703 ohms, threshold was 0.6 volts at 0.5 milliseconds. DEVICE INTERROGATION IMMEDIATELY POSTOP: RA sensing 18.3 millivolts, RV sensing 9.9 millivolts. Impedance 636 ohms. Threshold 0.4 volts at 0.4 milliseconds. Device was programmed at VVI 30 BPM. VT monitor zone at 188 BPM and VF treatment zone 207 BPM. First shock for VF will be 40 joules. The patient tolerated procedure well and was returned to the recovery room in stable condition. PLAN: The patient will be observed for 23 hours. We will continue with two more dosages of vancomycin since the patient is penicillin allergic. We will check a chest x-ray and interrogate the device in the morning. An EKG will be done as well. If everything checks out, the patient will be discharged tomorrow. Job ID: [id number] DocumentID: [id number] Dictated Date: 04/06/2017 16:36:52 Mercury Cell Cleaner Date: 04/07/2017 04:03:13 Dictated By: MARY MAYO MD MTDD
[2017-04-07 05:03] LABS: HEMOGLOBIN 15.1 G/DL (13.3-17.7); MEAN PLATELET VOLUME 11.4 FL (7.4-10.4); RED BLOOD COUNT 4.72 10^6/uL (4.35-5.85); RED CELL DISTRIBUTION WIDTH 11.7 % (10.0-14.5); WHITE BLOOD COUNT 7.8 10^3/uL (4.3-11.0)
[2017-04-07 05:24] LABS: ALANINE AMINOTRANSFERASE 22 U/L (0-55); ALBUMIN 3.8 GM/DL (3.2-4.5); ALKALINE PHOSPHATASE 39 U/L (40-136); BILIRUBIN,TOTAL 0.9 MG/DL (0.1-1.0); BUN/CREATININE RATIO 17; CALCIUM 8.6 MG/DL (8.5-10.1); CARBON DIOXIDE 22 MMOL/L (21-32); CHLORIDE 107 MMOL/L (98-107); CREATININE SERUM 0.82 MG/DL (0.60-1.30); GFR ESTIMATED > 60; GLUCOSE 86 MG/DL (70-105); POTASSIUM 3.9 MMOL/L (3.6-5.0); SODIUM 140 MMOL/L (135-145); TOTAL PROTEIN 6.1 GM/DL (6.4-8.2)
[2017-04-07 08:00] VITALS: BP 118/69
[2017-04-07] MEDS: VANCOMYCIN INJECTION 1,000 MG in NS (IVPB) 250 ML IV SCH (08:45)
--- NOTE | 2017-04-07 11:23 | Discharge Inst-Post Device ---
Discharge Inst-Post Device Follow up/Plan Dr Mayo in one week Heart Healthy Diet Do not lift arm on side of device placement above head for 4 weeks. Do not push and pull heavy objects for 4 weeks. Activity as tolerated. Leave dressing on until follow up at the office. Lesia MAYO MD Apr 07, 2017 11:23 am
--- NOTE | 2017-04-07 11:30 | Cardiology Discharge Summary ---
Diagnosis/Chief Complaint Date of Admission 04/06/2017 Date of Discharge 04/07/2017 Admission Diagnosis long QT syndrome, polymorphic VT Final/Discharge Diagnosis long QT syndrome, polymorphic VT, status post successful single-chamber ICD implantation. Chief Complaint/HPI Chief Complaint/HPI this is a 21-year-old gentleman with familial long QT syndrome type II. He has a brother who has ICD implantation. He had episodes of dizziness previously an implantable loop recorder was placed device interrogation recently showed torsade the point for 18 seconds. Associated dizziness but no syncope. Baseline EKG previously showed QTC of 490 ms. He is on a beta tamara. Discharge Summary Procedures single-chamber ICD implantation, implantable loop recorder explantation. Discharge Physical Examination normal left chest examination. Mild discomfort. Normal cardiovascular and respiratory examination. Hospital Course stable Pending Labs Laboratory Tests 04/07/17 04:35: White Blood Count 7.8, Red Blood Count 4.72, Hemoglobin 15.1, Hematocrit 41, Mean Corpuscular Volume 87, Mean Corpuscular Hemoglobin 32, Mean Corpuscular Hemoglobin Concent 37, Red Cell Distribution Width 11.7, Platelet Count 130, Mean Platelet Volume 11.4, Sodium Level 140, Potassium Level 3.9, Chloride Level 107, Carbon Dioxide Level 22, Anion Gap 11, Blood Urea Nitrogen 14, Creatinine 0.82, Estimat Glomerular Filtration Rate > 60, BUN/Creatinine Ratio 17, Glucose Level 86, Calcium Level 8.6, Total Bilirubin 0.9, Aspartate Amino Transf (AST/SGOT) 24, Alanine Aminotransferase (ALT/SGPT) 22, Alkaline Phosphatase 39, Total Protein 6.1, Albumin 3.8 Radiology Reviewed no pneumothorax on chest x-ray Discussion & Recommendations Discussion discharge took over 30 minutes to complete. All instructions given to the patient and family. Procedure explained as well. Follow up appt.: Dr. Mayo in one week. Dicharge Diet: Regular Diet Activity as Tolerated: Yes Home Medications Reviewed patient Home Medication Reconciliation Form Discharge Home Medications: Reviewed and agree with Discharge Medication list on patient's Discharge Instruction sheet Condition at discharge stable Instructions to patient/family Dr Mayo in one week Lesia MAYO MD Apr 07, 2017 11:30 am
[2017-04-07] MEDS ORDERED: CLIN300C11 PO (11:32)
[2017-04-07 12:07] VITALS: BP 127/74
== END 2017-04-07 12:25 | disposition home or self-care (01) ==
LOC: CATH 11:06 → ICU 15:55 → CATH 04-07 12:25
PROVIDERS: ATTEND Internal Medicine Interventional Cardiology
DX: I47.2 Ventricular tachycardia (principal); J30.2 Other seasonal allergic rhinitis; Z82.49 Family history of ischemic heart disease and other diseases of the circulatory system; M51.16 Intervertebral disc disorders with radiculopathy, lumbar region; R55 Syncope and collapse; Z79.899 Other long term (current) drug therapy
CPT/HCPCS: 33249; 33284; 36415; 71045; 80053; 85027; 85610; 85730; 87081; 93005; 93641